=== PATIENT | female | born 1985 | race Two or more races ===

== ENCOUNTER → 2024-11-28 | Outpatient (CLI) | payer MEDICAID, SELFPAY ==
--- NOTE | 2024-11-28 09:30 | XR_ITS ---
Examination: Diagnostic digital mammography, bilateral Computer aided detection 3-D breast Tomosynthesis, bilateral Date and time of exam: November 28, 2024 0904 hours INDICATIONS: Lump left breast noticed on clinical breast examination by physician this year Technique: Nonmagnified MLO, CC views of the breasts to been obtained, reconstructed from 3-D Tomosynthesis images. R2 computer aided detection program utilized for evaluation of suspicious masses and/or abnormal calcifications. 3-D Tomosynthesis images obtained. Findings: Scattered areas of fibroglandular density. Benign calcifications No suspicious masses Impression: BI-RADS Category 0: Incomplete: Need additional imaging evaluation Given the patient's presentation, recommend bilateral breast sonography follow-up.
== END | disposition home or self-care (01) ==
PROVIDERS: Referring Provider Internal Medicine; Visit Provider Internal Medicine
DX: R92.8 Other abnormal and inconclusive findings on diagnostic imaging of breast (principal)
CPT/HCPCS: 77062; 77066; G0279

== ENCOUNTER → 2025-01-01 | Outpatient (CLI) | payer MEDICAID, SELFPAY ==
--- NOTE | 2025-01-01 10:30 | XR_ITS ---
Examination: Breast ultrasound complete, bilateral Date and time of exam: January 01, 2025 1044 hours INDICATIONS: Lump left breast detected on clinical breast examination by provider one year ago Technique: Real-time grayscale ultrasonographic imaging bilateral breasts, including all 4 quadrants as well as nipple retroareolar and axillary regions. Findings: Sonographic images right and left breast demonstrated no cystic or solid masses IMPRESSION: BI-RADS category: Negative study
== END | disposition home or self-care (01) ==
PROVIDERS: PCP Physician Assistant; Referring Provider Physician Assistant; Visit Provider Physician Assistant
DX: N63.20 Unspecified lump in the left breast, unspecified quadrant (principal)
CPT/HCPCS: 76641

== ENCOUNTER 2025-06-24 08:54 | Outpatient (AMB) | payer MEDICAID, SELFPAY ==
[2025-06-24 09:24] VITALS: BP 133/88; PULSE 74; RESP 16; TEMP 36.5; O2SAT 97; BMI 31.1
--- NOTE | 2025-06-24 09:24 | GYNCLNT_ITS ---
Vital Signs 06/24/25 09:24 Height 1.65 m Height Method Stated Weight 84.878 kg Weight Measurement Method Standing Scale BMI 31.1 BP 133/88 H Blood Pressure Source Automatic Cuff Blood Pressure Location Left Upper Arm Position Sitting Respiration 16 Pulse 74 Pulse Source Monitor Temp 97.7 F Temp Source Oral Pulse Oximetry (%) 97 Oxygen Delivery Method Room Air Allergies/Home Meds Allergies & Medications Allergies Sulfa (Sulfonamide Antibiotics) Allergy (Severe, Verified 06/24/25 09:26) Rash Medication Reconciliation medroxyprogesterone 10 mg tablet 10 mg PO QDAY 10 days #10 tabs 06/29/25 [Rx] Intake Visit Data Collection New Patient or Established: Established Patient (seen at [facility] within 3 years) Reason for Visit:: HEAVY MENSES Seen by Clinical Staff ONLY (RN/MA): No Log Cut Off Sawyer Required: No Do You Feel Safe at Home: Yes Authorities Contacted: N/A PCP or OBGYN visit in last 3 months: Yes Hx Now: No Are you currently on any form of Control: No Last menstrual period: 06/06/25 Pain Present Currently: Yes Pain Location: Abdomen Pain Scale Used: Sidhu-Campos/Numerical Pain scale:: 4 Smoking Status Smoking Status: Never smoker Immunizations Flu Vaccine in the Last 12 Months: No Flu Vaccine Exclusion Criteria: No Exclusion Criteria 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 1. Little interest or pleasure in doing things: not at all 2. Feeling down, depressed, or hopeless: not at all Total score: 0 PHQ-9 3. Trouble falling or staying asleep, or sleeping too much: Not at all 4. Feeling tired or having little energy: Not at all 5. Poor appetite or overeating: Not at all 6. Feeling bad about yourself - or that you are a failure or have let yourself or your family down: Not at all 7. Trouble concentrating on things, such as reading the newspaper or watching television: Not at all 8. Moving or speaking so slowly that other people could have noticed? - Or the opposite - being so fidgety or restless that you have been moving around a lot more than usual: not at all 9. Thoughts that you would be better off or of hurting yourself in some w ay: Not at all Total score: 0 Source: Developed by Drs. Giovani Fallon, Glory Aguilera, Vishnu Sequeira and colleagues, with an educational danyel from [employer]. Depression screen completed yes Social History Living Situation History Marital Status: Lives With: Family Housing: House Tobacco History Smoking Status: Never smoker Second Hand Smoke Exposure: No Alcohol History Alcohol Intake: Never Domestic Abuse History Do You Feel Safe at Home: Yes History of Present Illness HPI Narrative Starr Boyd presents with abnormal uterine bleeding and pelvic pain over recent months, describing heavy periods lasting for one day with associated physical fatigue. She reports a cyst on the left side that she believes is causing her current pain symptoms. The patient experiences heavy flow for only one day during her menstrual cycle. She has a history of three prior deliveries with tubal ligation and a history of 4 seizures. The patient notes that an ultrasound from last year showed a cyst next to the left ovary and 2 fibroids in the uterus. She has also noticed the development of pimples recently. She is a 40-year-old female with an obstetric history of G3 T3 L3. ROS: General: Positive for physical fatigue. Skin: Positive for pimples. Negative except as stated above, limited to CV TECH and pertinent complaints. Diagnostic Test Results and Labs: - Pelvic ultrasound (07-16-2024): Retroverted and heterogeneous uterus measuring 8.2 by 6.5 centimeters, endometrium 0.7 centimeters. At least 2 uterine masses present, largest measuring 2.1 centimeters in posterior fundus. Right ovary 2.7 centimeters, left ovary 3 centimeters with 2.2 centimeter paraovarian cyst. Numerous follicles visible. Free fluid in anterior cul de sac. Normal urinary bladder. Exam General General Appearance: alert, in no apparent distress and healthy appearing Head Head exam: atraumatic Neck Neck exam: Present normal inspection and trachea midline Chest Chest inspection: Present normal inspection and symmetric chest wall rise External exam: Present normal external exam; Absent tenderness Neuro Neurological exam: Present oriented X3 Psych Psychiatric exam: Present normal affect and normal mood Office Procedures [facility] Clinic LOC & Office Proc's Nursing/Assessment Patient Status: Established Patient OB Clinic Nursing Assessment: Medication Reconciliation, Update PMH in EMR and Vital Signs OB Clinic Coordination of Care: Complex Care and Chronic Disease 1-5, Consent,records obtained, informed consent, Education Simp Pt/Fam, 1 Ins Authorization, Lab and Imaging orders, Results/Orders obtained and Staff clarify orders Established Patient Charge Established Patient Point Assignment: 120 Established Patient Point Charge: EP Level 4 (120-155) Assessment & Plan Diagnosis / Problem List (1) Abnormal uterine and vaginal bleeding, unspecified: Status: Acute (2) Pelvic and perineal pain left side: Status: Acute Plan Abnormal Uterine Bleeding: - Heavy bleeding for one day with pelvic ultrasound revealing retroverted heterogeneous uterus measuring 8.2 by 6.5 cm with endometrium of 0.7 cm. - Contributing factors include history of 3 C-sections and uterine leiomyomas affecting uterine muscle contraction. Plan: - Start high-dose progesterone to reduce bleeding. - Begin medication on the 10th day of menstrual period. - Continue treatment for 6 months. - Track menstrual cycles. - If progesterone treatment ineffective, consider stronger injection. - Schedule repeat ultrasound to check for changes. - Follow-up based on ultrasound results and medication effectiveness. Uterine Leiomyomas: - At least 2 uterine masses identified on pelvic ultrasound, largest being 2.1 cm in the posterior fundus. - Contributing to abnormal uterine bleeding along with history of C-sections. Plan: - Schedule repeat ultrasound to monitor fibroid changes. Pelvic Pain: - Patient reports pelvic pain and physical fatigue. - Associated with 2.2 cm paraovarian cyst on left ovary. Plan: - Schedule repeat ultrasound to check for changes in paraovarian cyst. Paraovarian Cyst: - Left ovary measures 3 cm with 2.2 cm paraovarian cyst. - Previous ultrasound from last year showed cyst next to left ovary. Plan: - Schedule repeat ultrasound to evaluate cyst progression.
== END 2025-06-24 10:05 | disposition home or self-care (01) ==
LOC: HODSOBC 08:54
PROVIDERS: Supervising Provider Obstetrics & Gynecology; Visit Provider Obstetrics & Gynecology
DX: D25.9 Leiomyoma of uterus, unspecified (principal); N83.202 Unspecified ovarian cyst, left side; N93.9 Abnormal uterine and vaginal bleeding, unspecified; Z98.51 Tubal ligation status; Z98.891 History of uterine scar from previous surgery; Z88.2 Allergy status to sulfonamides
CPT/HCPCS: 99214; G0463

== ENCOUNTER → 2025-07-22 | Outpatient (CLI) | payer MEDICAID, SELFPAY ==
--- NOTE | 2025-07-22 15:30 | XR_ITS ---
Examination: Pelvic ultrasound, transabdominal, complete Technique: Transabdominal ultrasound of the pelvis performed using grayscale imaging Date and time of exam: July 22, 2025, 1508 hours INDICATIONS: History of ovarian cystic disease 1 year ago on examination FINDINGS: Uterus 8.7 cm uterine fundal mass 3.2 x 3.8 cm, uterine body mass 1.0 x 1.0 cm Endometrial stripe 1.0 cm Right ovary 3.8 cm arterial flow Left ovary 4.5 cm arterial flow 2.3 x 2.2 cm simple cyst IMPRESSION: Uterine areas of fibroid degeneration, recommend 6-month follow-up transvaginal pelvic sonography Left ovarian simple cyst 2.0 x 2.3 x 2.2 cm
== END | disposition home or self-care (01) ==
LOC: CDIM 14:58
PROVIDERS: PCP Physician Assistant; Referring Provider Obstetrics & Gynecology; Visit Provider Obstetrics & Gynecology
DX: D25.9 Leiomyoma of uterus, unspecified (principal); N83.292 Other ovarian cyst, left side
CPT/HCPCS: 76856